=== PATIENT | male | born 2000 | race American Indian/Alaskan Native ===

== ENCOUNTER 2021-07-28 22:46 | Emergency (ER) | payer BC ==
[2021-07-28] MEDS ORDERED: MIDAZOLAM 2 MG/2 ML INJ IV ONE (23:36)
[2021-07-28] MEDS ORDERED: SODIUM CHLORIDE 0.9% 1000 ML 1,000 ML IV ONE (23:36)
[2021-07-28] MEDS ORDERED: PANTOPRAZOLE 40 MG INJ IV ONE (23:36)
--- NOTE | 2021-07-28 23:37 | Emergency Department Report ---
ED General Adult HPI - General Chief complaint: Chest Pain Stated complaint: CAN NOT BREATHE Time Seen by Provider: 07/28/21 23:15 Source: patient, family, RN notes reviewed Mode of arrival: Ambulatory Limitations: No Limitations - History of Present Illness Initial comments: The patient was evaluated in the emergency department for symptoms described in the history of present illness. He/she was evaluated in the context of the global COVID-19 pandemic, which necessitated consideration that the patient might be at risk for infection with the virus that causes COVID-19. Institutional protocols and algorithms that pertain to the evaluation of jad ents at risk for COVID-19 are in a state of rapid change based on information released by regulatory bodies including the CDC and federal and state organizations. These policies and algorithms were followed during the patient's care in the emergency department. Please note that these policies, procedures and recommendations changed on a rapid basis. This is a 21-year-old gentleman with a possible history of atrial septal defect, possible history of anxiety, presenting to the ER today with complaint of left- sided chest pressure, and difficulty breathing as well as heart racing. He denies travel, surgery, immobilization, DVT/PE risk factors. The pain does not radiate to the back, arms or neck. There is no vomiting or diaphoresis. Mother reports no significant family history, specifically, she denies a family history of coronary artery disease, pulmonary embolism, DVT. The patient felt a little bit improved after Versed here in the emergency room. -: Gradual, hour(s) Location: chest (Left anterior chest wall) Radiation: non-radiation Severity scale (0 -10): 7 Consistency: constant Improves with: none Worsens with: none - Related Data Previous Rx's Medication Instructions Recorded Last Taken Type Potassium Chloride [K-Dur] 20 meq PO BID #60 tab 07/29/21 Unknown Rx Allergies Allergy/AdvReac Type Severity Reaction Status Date / Time No Known Allergies Allergy Verified 07/28/21 23:54 ED Review of Systems ROS: Stated complaint: CAN NOT BREATHE Other details as noted in HPI Constitutional: denies: fever Eyes: denies: eye discharge ENT: denies: epistaxis Respiratory: shortness of breath. denies: cough Cardiovascular: chest pain, palpitations Gastrointestinal: denies: abdominal pain, hematemesis, melena, hematochezia Genitourinary: denies: dysuria Musculoskeletal: denies: back pain Neurological: weakness Psychiatric: anxiety. denies: homicidal thoughts, suicidal thoughts ED Past Medical Hx - Past Medical History Previous Medical History?: No - Surgical History Past Surgical History?: No - Medications Home Medications: Home Medications Medication Instructions Recorded Confirmed Last Taken Type Potassium Chloride [K-Dur] 20 meq PO BID #60 tab 07/29/21 Unknown Rx ED Physical Exam - General Limitations: No Limitations General appearance: alert, anxious - Head Head exam: Present: atraumatic, normocephalic - Eye Eye exam: Present: normal appearance, EOMI. Absent: nystagmus - ENT ENT exam: Present: normal exam, normal orophraynx, mucous membranes moist, normal external ear exam - Neck Neck exam: Present: normal inspection, full ROM. Absent: tenderness, meningismus - Respiratory Respiratory exam: Present: normal lung sounds bilaterally. Absent: respiratory distress, rhonchi, stridor, chest wall tenderness - Cardiovascular Cardiovascular Exam: Present: normal rhythm, tachycardia, normal heart sounds. Absent: bradycardia, irregular rhythm, systolic murmur, diastolic murmur, rubs, gallop - GI/Abdominal GI/Abdominal exam: Present: soft. Absent: distended, tenderness, guarding, rebound, rigid, pulsatile mass - Rectal Rectal exam: Present: deferred - Extremities Exam Extremities exam: Present: normal inspection, full ROM, other (2+ pulses noted in the bilateral upper and lower extremities. There is no palpable cord. negative Homans sign. Muscular compartments are soft. The pelvis is stable.). Absent: pedal edema, calf tenderness - Back Exam Back exam: Present: normal inspection, full ROM. Absent: tenderness, CVA tenderness (R), CVA tenderness (L), paraspinal tenderness, vertebral tenderness - Neurological Exam Neurological exam: Present: alert, oriented X3, other (No facial droop. Tongue midline. Extraocular movements intact bilaterally. Facial sensation intact to light touch in V1, V2, V3 distribution bilaterally. 5 and a 5 strength in 4 extremities. Sensation intact to light touch in 4 extremities.). Absent: motor sensory deficit - Psychiatric Psychiatric exam: Present: anxious. Absent: homicidal ideation, suicidal ideation - Skin Skin exam: Present: warm, dry, intact, normal color. Absent: rash ED Course Vital Signs 07/28/21 07/28/21 07/28/21 23:03 23:15 23:31 Temperature Pulse Rate 152 H 139 H 133 H Respiratory 17 20 23 Rate Blood Pressure 172/88 Blood Pressure [Right] O2 Sat by Pulse 98 100 100 Oximetry 07/28/21 07/28/21 07/28/21 23:32 23:36 23:45 Temperature 98.3 F Pulse Rate 136 H 124 H Respiratory 16 26 H Rate Blood Pressure 159/90 Blood Pressure 172/88 [Right] O2 Sat by Pulse 96 98 98 Oximetry 07/29/21 07/29/21 07/29/21 00:01 00:09 00:15 Temperature Pulse Rate 116 H 118 H 117 H Respiratory 17 23 21 Rate Blood Pressure 125/68 142/89 142/89 Blood Pressure [Right] O2 Sat by Pulse 100 100 100 Oximetry 07/29/21 00:31 Temperature Pulse Rate 117 H Respiratory 24 Rate Blood Pressure 145/96 Blood Pressure [Right] O2 Sat by Pulse 100 Oximetry - Reevaluation(s) Reevaluation #1: 07/29/21 01:04 Differential diagnosis, including but not limited to: Electrolyte derangement, thyroid derangement, anxiety, pulmonary embolism, conversion disorder Assessment and plan: 21-year-old gentleman who is tachycardic and tachypneic, but not hypoxic, who is low risk by Wells criteria for pulmonary embolism, with a negative D-dimer, and resolving tachycardia after Versed, presenting with nonspecific tachycardia, chest pressure. Check appropriate laboratory studies. EKG will be repeated. X-ray of the chest is unremarkable. Continue to treat supportively and symptomatically. Patient at low risk for major adverse cardiac event as per heart score. Reassessed. Reevaluation #2: 07/29/21 01:26 Tachycardia improving. Repeat EKG interpreted at 01: 1 3 Sinus rhythm, tachycardia. 103 bpm. Rightward axis deviation. High left ventricular voltage. Early repolarization. Not a STEMI. Essentially unchanged from prior EKG. Laboratory studies remarkable for mild hyperglycemia and hypokalemia. IV fluids have been ordered. Potassium supplementation has been ordered. Troponin negative x1. Tachycardia improving. Repeat troponin is pending Reevaluation #3: 07/29/21 01:30 As per the nurse to triage the patient, the patient reportedly endorsed to the nurse that he either vaped or consumed an edible. 's mother is not certain. This is a more likely scenario. We will observe pending clinical sobriety. Repeat troponin is negative. 07/29/21 02:38 Final reassessment. Heart rate 98 bpm. Blood pressure 118/72. Saturating at 99% on room air. Troponin negative x2. Initial presentation most likely secondary to recreational drug ingestion. The patient does not meet criteria for 1013 hold or involuntary confinement. He is breathing spontaneously, saturating well on room air, and conversing with me. Furthermore he is with his mother, who feels comfortable to take him home 07/29/21 02:38 Serum toxicology studies are unremarkable Reevaluation #4: 07/29/21 02:39 heart score 1 points Low Score (0-3 points) Risk of MACE of 0.9-1.7%. ED Medical Decision Making - Lab Data Result diagrams: 07/28/21 23:45 07/28/21 23:45 Vital Signs 07/28/21 07/28/21 07/28/21 23:03 23:15 23:31 Temperature Pulse Rate 152 H 139 H 133 H Respiratory 17 20 23 Rate Blood Pressure 172/88 Blood Pressure [Right] O2 Sat by Pulse 98 100 100 Oximetry 07/28/21 07/28/21 07/28/21 23:32 23:36 23:45 Temperature 98.3 F Pulse Rate 136 H 124 H Respiratory 16 26 H Rate Blood Pressure 159/90 Blood Pressure 172/88 [Right] O2 Sat by Pulse 96 98 98 Oximetry 07/29/21 07/29/21 07/29/21 00:01 00:09 00:15 Temperature Pulse Rate 116 H 118 H 117 H Respiratory 17 23 21 Rate Blood Pressure 125/68 142/89 142/89 Blood Pressure [Right] O2 Sat by Pulse 100 100 100 Oximetry 07/29/21 00:31 Temperature Pulse Rate 117 H Respiratory 24 Rate Blood Pressure 145/96 Blood Pressure [Right] O2 Sat by Pulse 100 Oximetry Lab Results 07/28/21 07/28/21 07/28/21 Range/Units 23:45 23:45 23:45 WBC 6.0 (4.5-11.0) K/mm3 RBC 5.28 H (3.65-5.03) M/mm3 Hgb 14.9 (11.8-15.2) gm/dl Hct 44.6 (35.5-45.6) % MCV 85 (84-94) fl MCH 28 (28-32) pg MCHC 33 (32-34) % RDW 13.3 (13.2-15.2) % Plt Count 220 (140-440) K/mm3 PT 13.4 (12.2-14.9) Sec. INR 0.92 (0.87-1.13) D-Dimer < 135.00 (0-234) ng/mlDDU Sodium 135 L (137-145) mmol/L Potassium 3.0 L (3.6-5.0) mmol/L Chloride 99.6 (98-107) mmol/L Carbon Dioxide 21 L (22-30) mmol/L Anion Gap 17 mmol/L BUN 7 L (9-20) mg/dL Creatinine 0.9 (0.8-1.3) mg/dL Estimated GFR > 60 ml/min BUN/Creatinine Ratio 8 % Glucose 219 H (75-100) mg/dL Calcium 9.2 (8.4-10.2) mg/dL Magnesium 1.70 (1.7-2.3) mg/dL Total Bilirubin 0.50 (0.1-1.2) mg/dL AST 17 (5-40) units/L ALT 16 (7-56) units/L Alkaline Phosphatase 80 (35-129) units/L Total Creatine Kinase 311 H (55-170) units/L Troponin T < 0.010 (0.00-0.029) ng/mL Total Protein 7.2 (6.3-8.2) g/dL Albumin 4.5 (3.9-5) g/dL Albumin/Globulin Ratio 1.7 % TSH (0.270-4.200) mlU/mL Salicylates (2.8-20.0) mg/dL Acetaminophen (10.0-30.0) ug/mL Plasma/Serum Alcohol (0-0.07) % 07/28/21 07/28/21 07/28/21 Range/Units 23:45 23:45 23:45 WBC (4.5-11.0) K/mm3 RBC (3.65-5.03) M/mm3 Hgb (11.8-15.2) gm/dl Hct (35.5-45.6) % MCV (84-94) fl MCH (28-32) pg MCHC (32-34) % RDW (13.2-15.2) % Plt Count (140-440) K/mm3 PT (12.2-14.9) Sec. INR (0.87-1.13) D-Dimer (0-234) ng/mlDDU Sodium (137-145) mmol/L Potassium (3.6-5.0) mmol/L Chloride (98-107) mmol/L Carbon Dioxide (22-30) mmol/L Anion Gap mmol/L BUN (9-20) mg/dL Creatinine (0.8-1.3) mg/dL Estimated GFR ml/min BUN/Creatinine Ratio % Glucose (75-100) mg/dL Calcium (8.4-10.2) mg/dL Magnesium (1.7-2.3) mg/dL Total Bilirubin (0.1-1.2) mg/dL AST (5-40) units/L ALT (7-56) units/L Alkaline Phosphatase (35-129) units/L Total Creatine Kinase (55-170) units/L Troponin T (0.00-0.029) ng/mL Total Protein (6.3-8.2) g/dL Albumin (3.9-5) g/dL Albumin/Globulin Ratio % TSH 0.752 (0.270-4.200) mlU/mL Salicylates < 0.3 L (2.8-20.0) mg/dL Acetaminophen 5.0 L (10.0-30.0) ug/mL Plasma/Serum Alcohol (0-0.07) % 07/28/21 Range/Units 23:45 WBC (4.5-11.0) K/mm3 RBC (3.65-5.03) M/mm3 Hgb (11.8-15.2) gm/dl Hct (35.5-45.6) % MCV (84-94) fl MCH (28-32) pg MCHC (32-34) % RDW (13.2-15.2) % Plt Count (140-440) K/mm3 PT (12.2-14.9) Sec. INR (0.87-1.13) D-Dimer (0-234) ng/mlDDU Sodium (137-145) mmol/L Potassium (3.6-5.0) mmol/L Chloride (98-107) mmol/L Carbon Dioxide (22-30) mmol/L Anion Gap mmol/L BUN (9-20) mg/dL Creatinine (0.8-1.3) mg/dL Estimated GFR ml/min BUN/Creatinine Ratio % Glucose (75-100) mg/dL Calcium (8.4-10.2) mg/dL Magnesium (1.7-2.3) mg/dL Total Bilirubin (0.1-1.2) mg/dL AST (5-40) units/L ALT (7-56) units/L Alkaline Phosphatase (35-129) units/L Total Creatine Kinase (55-170) units/L Troponin T (0.00-0.029) ng/mL Total Protein (6.3-8.2) g/dL Albumin (3.9-5) g/dL Albumin/Globulin Ratio % TSH (0.270-4.200) mlU/mL Salicylates (2.8-20.0) mg/dL Acetaminophen (10.0-30.0) ug/mL Plasma/Serum Alcohol < 0.01 (0-0.07) % - EKG Data -: EKG Interpreted by [facility] EKG shows normal: sinus rhythm Rate: tachycardia - EKG Data When compared to previous EKG there are: previous EKG unavailable 07/29/21 01:01 The EKG is interpreted 22: 5 0 sinus tachycardia. 156 bpm. Borderline rightward axis deviation. QTc 4 5 7 ms. High left ventricular voltage. Abnormal EKG. Not a STEMI. There is no prior for comparison - Radiology Data Radiology results: pending, report reviewed, image reviewed CHEST 1 VIEW INDICATION / CLINICAL INFORMATION: cp dyspnea. COMPARISON: None available. FINDINGS: SUPPORT DEVICES: None. HEART / MEDIASTINUM: No significant abnormality. LUNGS / PLEURA: No significant pulmonary or pleural abnormality. No pneumothorax. ADDITIONAL FINDINGS: No significant additional findings. IMPRESSION: 1. No acute findings. Signer Name: Dhiraj Ramires MD Signed: 07/28/2021 10:31 PM Workstation Name: [id number] Critical care attestation.: If time is entered above; I have spent that time in minutes in the direct care of this critically ill patient, excluding procedure time. ED Disposition Clinical Impression: Hypokalemia, Nonspecific chest pain, Engages in vaping Disposition: 01 HOME / SELF CARE / HOMELESS Is pt being admited?: No Does the pt Need Aspirin: No Condition: Good Additional Instructions: We recommend that the patient avoid consumption of alcohol, tobacco, smoke products. Recommend that patient drink 4 to 6 cups of water per day, and we recommend that the patient not drive or operate motor vehicles until cleared to do so by his primary care doctor. We recommend follow-up with a primary care doctor within the next 5 to 7 days. Patient may consume foods that are high in potassium, such as banana, avocado, or potato. Patient will also receive a potassium prescription. Please return to the emergency room right away with new pain, worsened pain, migration of pain, projectile vomiting, change in mental status, confusion, inability tolerate liquid feeds, new, worsened or different symptoms not present on the initial emergency room evaluation Referrals: [facility] [Provider Group] - 3-5 Days Forms: Work/School Release Form(ED)
[2021-07-29 00:27] LABS: Hematocrit 44.6 % (35.5-45.6); Hemoglobin 14.9 gm/dl (11.8-15.2); Mean Corpuscular HGB Conc 33 % (32-34); Mean Corpuscular Volume 85 fl (84-94); Platelet Count 220 K/mm3 (140-440); Red Blood Count 5.28 M/mm3 (3.65-5.03); Red Cell Distribution Width 13.3 % (13.2-15.2)
[2021-07-29 00:43] LABS: INR 0.92 (0.87-1.13)
[2021-07-29 00:48] LABS: Alanine Aminotransferase 16 units/L (7-56); Albumin 4.5 g/dL (3.9-5); BUN/Creatinine Ratio 8; Blood Urea Nitrogen 7 mg/dL (9-20); Calcium 9.2 mg/dL (8.4-10.2); Hemolysis Index 8
[2021-07-29] MEDS ORDERED: MIDAZOLAM 2 MG/2 ML INJ IV ONE (01:00)
[2021-07-29] MEDS ORDERED: KETOROLAC 30 MG/1 ML INJ IV ONE (01:00)
[2021-07-29] MEDS ORDERED: POTASSIUM CHLORIDE ER 20 MEQ TAB PO ONE (01:26)
[2021-07-29 02:54] VITALS: BP 131/79
--- NOTE | 2021-07-29 12:14 | Electrocardiograph Report ---
[facility] Test Date: 2021-07-28 Test Time: 22:50:45 Pat Name: CHRISTINA LEE Department: Room: Gender: M Clinical Services Director: NAYAN : 2000 Requested By: AL BERRY Order Number: [id number] Reading MD: Bri Hercules Measurements Intervals [place]um Rate: 156 P: 82 VT: 125 QRS: 93 QRSD: 100 T: 2 QT: 283 QTc: 457 Interpretive Statements Sinus tachycardia Consider Brugada No previous ECG available for comparison Electronically Signed On 07-29-2021 12:14:23 EDT by Bri Hercules
--- NOTE | 2021-07-29 12:16 | Electrocardiograph Report ---
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
== END 2021-07-29 03:15 | disposition home or self-care (01) ==
LOC: ED 22:46
DX: E87.6 Hypokalemia (principal); R07.9 Chest pain, unspecified; U07.0 Vaping-related disorder
CPT/HCPCS: 36415; 71045; 80053; 82550; 83735; 84443; 84484; 85027; 85379; 85610; 93005; 96361; 96374; 96375; 99284; C9113; J1885; J2250; J7030; 80320; G0480